=== PATIENT | female | born 1995 | race African-American/Black ===

== ENCOUNTER 2018-03-09 13:55 | Emergency (ER) | payer MEDICAID ==
[~2018-03-09] VITALS: Ht 162.6 cm; Wt 60.0 kg
[2018-03-09] MEDS ORDERED: BUTORPHANOL TARTRATE 2 MG/ML VIAL IM PRN (14:30)
[2018-03-09] MEDS ORDERED: FAMOTIDINE 20MG/2ML VIAL IV ONE (14:30)
[2018-03-09] MEDS ORDERED: SODIUM CHLORIDE 0.9% 1,000 ML IV ONE (14:30)
[2018-03-09] MEDS ORDERED: ONDANSETRON HCL 4MG/2ML INJ IV STA (14:30)
[2018-03-09 14:50] LABS: CLARITY URINE CLOUDY (CLEAR); COLOR URINE ORANGE (YELLOW); KETONES URINE 4+ (NEGATIVE); LEUKOCYTE ESTERASE URINE TRACE (NEGATIVE); NITRITE URINE NEGATIVE (NEGATIVE); OCCULT BLOOD URINE NEGATIVE (NEGATIVE); PROTEIN URINE 2+ (NEGATIVE); SPECIFIC GRAVITY URINE 1.037 (1.005-1.030)
[2018-03-09 15:16] LABS: BASOPHILS % 0.2 % (0.0-2.0); EOSINOPHILS % 0.1 % (0.0-5.0); HEMATOCRIT. 43.9 % (36.0-48.0); HEMOGLOBIN. 14.7 g/dL (12.0-16.0); LYMPHOCYTES % 11.5 % (20.0-50.0); MEAN CORPUSCULAR HEMOGLOBIN 27.4 pg (28.0-32.0); MEAN CORPUSCULAR VOLUME 81.5 fL (81.0-99.0); MEAN PLATELET VOLUME 9.5 fl (7.4-10.4); MONOCYTES % 10.6 % (2.0-8.0); NEUTROPHILS % 77.6 % (40.0-76.0); PLATELET 298 x1000/uL (130-400); RED BLOOD CELL COUNT 5.38 mill/uL (4.2-5.4); RED CELL DISTRIBUTION WIDTH 13.5 % (11.6-14.6)
[2018-03-09 15:20] LABS: CHLORIDE 94 mEq/L (98-107); INR 1.2
[2018-03-09] MEDS ORDERED: POTASSIUM CHLORIDE 20MEQ TABLET SR PO ONE (15:30)
[2018-03-09] MEDS ORDERED: ACETAMINOPHEN 325MG TABLET PO ONE (16:15)
[2018-03-09 17:15] LABS: B-HCG QUANTITATIVE > 250000 mIU/mL (<3)
[2018-03-09 18:46] VITALS: BP 107/64
== END 2018-03-09 18:47 | disposition home or self-care (01) ==
LOC: ER 14:10
DX: O21.1 Hyperemesis gravidarum with metabolic disturbance (principal); O23.41 Unspecified infection of urinary tract in pregnancy, first trimester; R79.89 Other specified abnormal findings of blood chemistry; O26.891 Other specified pregnancy related conditions, first trimester; Z3A.09 9 weeks gestation of pregnancy
CPT/HCPCS: 36415; 76801; 80053; 81003; 83690; 83735; 84702; 85025; 85610; 86850; 86900; 86901; 96361; 96374; 96375; 99285; J2405; J3490; J7030

== ENCOUNTER 2018-03-10 10:44 | Inpatient (IN) | payer MEDICAID, OTHER ==
[~2018-03-10] VITALS: Ht 160 cm; Wt 60.3 kg
[2018-03-10] MEDS ORDERED: SODIUM CHLORIDE 0.9% 1,000 ML IV ONE (16:41)
[2018-03-10] MEDS ORDERED: FAMOTIDINE 20MG/2ML VIAL IV STA (16:41)
[2018-03-10] MEDS ORDERED: ONDANSETRON HCL 4MG/2ML INJ IV STA (16:41)
[2018-03-10 17:12] LABS: BASOPHILS % 0.2 % (0.0-2.0); HEMATOCRIT. 41.1 % (36.0-48.0); HEMOGLOBIN. 13.9 g/dL (12.0-16.0); LYMPHOCYTES % 9.2 % (20.0-50.0); MEAN CORPUSCULAR HEMOGLOBIN 27.5 pg (28.0-32.0); MEAN CORPUSCULAR VOLUME 81.3 fL (81.0-99.0); MEAN PLATELET VOLUME 9.7 fl (7.4-10.4); NEUTROPHILS % 83.6 % (40.0-76.0); PLATELET 281 x1000/uL (130-400); RED BLOOD CELL COUNT 5.05 mill/uL (4.2-5.4); RED CELL DISTRIBUTION WIDTH 13.5 % (11.6-14.6)
[2018-03-10 17:17] LABS: CHLORIDE 97 mEq/L (98-107)
[2018-03-10 17:18] LABS: INR 1.2
[2018-03-10] MEDS ORDERED: KCL 20MEQ/100ML PREMIX 100 ML IV ONE (17:30)
[2018-03-10] MEDS ORDERED: ACETAMINOPHEN 325MG TABLET PO ONE (17:30)
[2018-03-10 17:53] LABS: B-HCG QUANTITATIVE > 200000 mIU/mL (<3)
[2018-03-10] MEDS ORDERED: ONDANSETRON HCL 4MG/2ML INJ IV ONE (19:00)
[2018-03-10] MEDS ORDERED: CEFTRIAXONE 1 G PREMIX 50 ML IV ONE (19:00)
[2018-03-10 19:23] LABS: CLARITY URINE CLEAR (CLEAR); COLOR URINE DARK YELLOW (YELLOW); KETONES URINE 4+ (NEGATIVE); LEUKOCYTE ESTERASE URINE NEGATIVE (NEGATIVE); NITRITE URINE NEGATIVE (NEGATIVE); OCCULT BLOOD URINE NEGATIVE (NEGATIVE); PROTEIN URINE 1+ (NEGATIVE); SPECIFIC GRAVITY URINE 1.027 (1.005-1.030)
[2018-03-10 19:37] LABS: *AMPHETAMINES SCREEN URINE NEGATIVE (NEGATIVE); *BARBITURATES SCREEN URINE NEGATIVE (NEGATIVE); *BENZODIAZEPINES SCREEN URINE NEGATIVE (NEGATIVE); *COCAINE SCREEN URINE NEGATIVE (NEGATIVE)
[2018-03-10 19:41] LABS: METHADONE URINE SCREEN NEGATIVE (NEGATIVE); OPIATES URINE SCREEN NEGATIVE (NEGATIVE); PHENCYCLIDINE URINE SCREEN NEGATIVE (NEGATIVE)
[2018-03-10 19:45] LABS: CANNABINOID URINE SCREEN PRESUMTIVE POSITIVE (NEGATIVE)
[2018-03-10 23:30] VITALS: BP 101/61
[2018-03-10] MEDS ORDERED: ONDANSETRON HCL 4MG/2ML INJ IV PRN (23:30)
[2018-03-10] MEDS ORDERED: ACETAMINOPHEN 650MG SUPP PR PRN (23:30)
[2018-03-11] MEDS ORDERED: POTASSIUM CHLORIDE INJ 40 MEQ in DEXT 5% WATER 500 ML IV NR (01:00)
[2018-03-11] MEDS: MVI, ADULT NO.1 10 ML in DEXT 5%/0.9% NACL 1,000 ML IV SCH ×2 (02:11)
[2018-03-11 04:00] VITALS: BP 94/59
[2018-03-11] MEDS ORDERED: ACET-2853 PO (05:53)
[2018-03-11] MEDS ORDERED: CEPH500C2 MT (05:53)
[2018-03-11] MEDS ORDERED: DOXY1TAB3 MT (05:53)
[2018-03-11 07:31] LABS: BASOPHILS % 0.5 % (0.0-2.0); EOSINOPHILS % 0.7 % (0.0-5.0); MEAN CORPUSCULAR HEMOGLOBIN 27.5 pg (28.0-32.0); MEAN CORPUSCULAR VOLUME 82.6 fL (81.0-99.0); MEAN PLATELET VOLUME 9.8 fl (7.4-10.4); MONOCYTES % 11.8 % (2.0-8.0); PLATELET 211 x1000/uL (130-400); RED BLOOD CELL COUNT 3.73 mill/uL (4.2-5.4); RED CELL DISTRIBUTION WIDTH 13.3 % (11.6-14.6)
[2018-03-11 07:38] LABS: CHLORIDE 106 mEq/L (98-107)
[2018-03-11 07:46] LABS: HEMATOCRIT. 30.8 % (36.0-48.0); HEMOGLOBIN. 10.3 g/dL (12.0-16.0)
[2018-03-11 08:00] VITALS: BP 94/62
[2018-03-11] MEDS ORDERED: ONDANSETRON HCL 4MG/2ML INJ IV SCH (10:00)
[2018-03-11] MEDS: ONDANSETRON HCL 4MG/2ML INJ IV SCH ×2 (11:04→17:39)
[2018-03-11 12:00] VITALS: BP 93/62
[2018-03-11] MEDS: PROMETHAZINE HCL 25MG TABLET PO SCH ×2 (12:21→17:38)
[2018-03-11] MEDS: FAMOTIDINE 20MG/2ML VIAL IV SCH ×2 (15:10→20:11)
[2018-03-11 16:00] VITALS: BP 102/72
[2018-03-11 20:00] VITALS: BP 134/87
[2018-03-11] MEDS ORDERED: FAMOTIDINE 20MG/2ML VIAL IV SCH (21:00)
[2018-03-12] VITALS: BP 99/57
[2018-03-12] MEDS: ONDANSETRON HCL 4MG/2ML INJ IV SCH ×4 (00:07→18:07)
[2018-03-12] MEDS: PROMETHAZINE HCL 25MG TABLET PO SCH (00:07)
[2018-03-12] MEDS: MVI, ADULT NO.1 10 ML in DEXT 5%/0.9% NACL 1,000 ML IV SCH ×2 (01:35)
[2018-03-12 04:00] VITALS: BP 104/56
[2018-03-12 08:00] VITALS: BP 99/66
[2018-03-12 08:13] LABS: CHLORIDE 105 mEq/L (98-107)
[2018-03-12] MEDS ORDERED: DEXT 5% WATER + KCL 40MEQ/L 500 ML IV ONE (08:45)
[2018-03-12] MEDS ORDERED: PYRIDOXINE 100 MG/ML 1ML IM SCH (09:00)
[2018-03-12] MEDS: FAMOTIDINE 20MG/2ML VIAL IV SCH ×2 (09:21→21:46)
[2018-03-12] MEDS ORDERED: POTASSIUM CHLORIDE INJ 40 MEQ in DEXT 5% WATER 500 ML IV NR (10:00)
[2018-03-12 12:00] VITALS: BP 103/68
[2018-03-12 16:00] VITALS: BP 98/64
[2018-03-12] MEDS ORDERED: SODIUM CHLORIDE 0.9% 500 ML IV ONE (19:45)
[2018-03-12 20:00] VITALS: BP 97/71
[2018-03-13] VITALS: BP 99/68
[2018-03-13] MEDS: MVI, ADULT NO.1 10 ML in DEXT 5%/0.9% NACL 1,000 ML IV SCH ×2 (00:22)
[2018-03-13] MEDS: ONDANSETRON HCL 4MG/2ML INJ IV SCH ×4 (00:22→18:03)
[2018-03-13 04:00] VITALS: BP 95/56
[2018-03-13] MEDS ORDERED: PYRIDOXINE 100 MG/ML 1ML IM NR (06:00)
[2018-03-13 08:00] VITALS: BP 118/61
[2018-03-13] MEDS: FAMOTIDINE 20MG/2ML VIAL IV SCH (10:08)
[2018-03-13 10:12] LABS: CHLORIDE 109 mEq/L (98-107)
[2018-03-13 12:00] VITALS: BP 106/71
[2018-03-13] MEDS ORDERED: POTASSIUM CHLORIDE INJ 40 MEQ in DEXT 5% WATER 500 ML IV SCH (13:00)
[2018-03-13 15:55] VITALS: BP 108/70
[2018-03-13 16:00] VITALS: BP 108/70
== END 2018-03-13 19:35 | disposition home or self-care (01) | DRG 566 ==
LOC: ER 10:44 → 8WST 21:07 → EDBEDREQ 21:11 → EDBEDREQTM 21:11 → ENRESERV 21:21 → EDBEDREQ 21:31 → EDBEDREQTM 21:31
PROVIDERS: ADMIT Specialist; ATTEND Specialist
DX: O21.1 Hyperemesis gravidarum with metabolic disturbance (principal); O99.321 Drug use complicating pregnancy, first trimester; O99.011 Anemia complicating pregnancy, first trimester; O99.281 Endocrine, nutritional and metabolic diseases complicating pregnancy, first trimester; E86.0 Dehydration; D64.9 Anemia, unspecified; F12.10 Cannabis abuse, uncomplicated; Z3A.09 9 weeks gestation of pregnancy; Z87.440 Personal history of urinary (tract) infections
CPT/HCPCS: 36415; 76801; 80048; 80051; 80305; 83735; 84439; 84443; 84520; 84702; 93005; 93970; 96361; 96374; 96375; 99285; J0696; J2405; J3415; J3480; J3490; J7030; J7042; J7060; Q0169

== ENCOUNTER 2018-03-23 11:09 | Emergency (ER) | payer MEDICAID ==
[~2018-03-23] VITALS: Ht 157.5 cm; Wt 56.0 kg
[~2018-03-23 11:09] MED LIST: ACET-2853 PO; CEPH500C2 MT; DOXY1TAB3 MT
[2018-03-23] MEDS ORDERED: SODIUM CHLORIDE 0.9% 1,000 ML IV ONE (11:41)
[2018-03-23] MEDS ORDERED: ONDANSETRON HCL 4MG/2ML INJ IV ONE (11:45)
[2018-03-23 12:29] LABS: BASOPHILS % 0.4 % (0.0-2.0); EOSINOPHILS % 0.2 % (0.0-5.0); HEMOGLOBIN. 14.5 g/dL (12.0-16.0); LYMPHOCYTES % 11.3 % (20.0-50.0); MEAN CORPUSCULAR HEMOGLOBIN 27.7 pg (28.0-32.0); MEAN CORPUSCULAR VOLUME 82.3 fL (81.0-99.0); MEAN PLATELET VOLUME 9.7 fl (7.4-10.4); MONOCYTES % 10.7 % (2.0-8.0); NEUTROPHILS % 77.4 % (40.0-76.0); PLATELET 371 x1000/uL (130-400); RED BLOOD CELL COUNT 5.23 mill/uL (4.2-5.4); RED CELL DISTRIBUTION WIDTH 13.4 % (11.6-14.6)
[2018-03-23 12:32] LABS: CHLORIDE 96 mEq/L (98-107)
[2018-03-23 12:44] LABS: T4 FREE 2.35 ng/dL (0.76-1.46)
[2018-03-23 14:18] LABS: CLARITY URINE CLEAR (CLEAR); COLOR URINE DARK YELLOW (YELLOW); KETONES URINE 4+ (NEGATIVE); LEUKOCYTE ESTERASE URINE NEGATIVE (NEGATIVE); NITRITE URINE NEGATIVE (NEGATIVE); OCCULT BLOOD URINE NEGATIVE (NEGATIVE); PH URINE 5.5 (4.5-8.0); PROTEIN URINE 1+ (NEGATIVE); SPECIFIC GRAVITY URINE 1.035 (1.005-1.030)
[2018-03-23] MEDS ORDERED: ONDANSETRON 4MG/5ML UDC PO ONE (17:00)
[2018-03-23 17:01] VITALS: BP 97/61
== END 2018-03-23 17:04 | disposition home or self-care (01) ==
LOC: ER 11:09
DX: O26.891 Other specified pregnancy related conditions, first trimester (principal); O21.0 Mild hyperemesis gravidarum; Z3A.11 11 weeks gestation of pregnancy
CPT/HCPCS: 36415; 76705; 76801; 76817; 80053; 81003; 81025; 84439; 84443; 84702; 85025; 96361; 96374; 99285; J2405; J7030; Q0162

== ENCOUNTER 2018-08-28 21:50 | Observation (INO) | payer MEDICAID ==
[~2018-08-28] VITALS: Ht 157.5 cm; Wt 59.9 kg
[2018-08-28] MEDS ORDERED: [UNRECOGNIZED DRUG - REMARK] IV SCH ×2 (23:00)
[2018-08-28] MEDS ORDERED: MVI, ADULT NO.1 10 ML in DEXT 5%/0.9% NACL 1,000 ML IV ONE ×2 (23:15)
[2018-08-29 00:08] LABS: CLARITY URINE CLEAR (CLEAR); COLOR URINE YELLOW (YELLOW); KETONES URINE TRACE (NEGATIVE); LEUKOCYTE ESTERASE URINE TRACE (NEGATIVE); NITRITE URINE NEGATIVE (NEGATIVE); OCCULT BLOOD URINE NEGATIVE (NEGATIVE); PH URINE 7.5 (4.5-8.0); PROTEIN URINE NEGATIVE (NEGATIVE); SPECIFIC GRAVITY URINE 1.021 (1.005-1.030)
[2018-08-29 00:24] LABS: *AMPHETAMINES SCREEN URINE NEGATIVE (NEGATIVE); *BARBITURATES SCREEN URINE NEGATIVE (NEGATIVE); CANNABINOID URINE SCREEN NEGATIVE (NEGATIVE); METHADONE URINE SCREEN NEGATIVE (NEGATIVE); OPIATES URINE SCREEN NEGATIVE (NEGATIVE); PHENCYCLIDINE URINE SCREEN NEGATIVE (NEGATIVE)
[2018-08-29 00:25] LABS: *BENZODIAZEPINES SCREEN URINE NEGATIVE (NEGATIVE); *COCAINE SCREEN URINE NEGATIVE (NEGATIVE)
[2018-08-29 00:52] LABS: BASOPHILS % 0.4 % (0.0-2.0); EOSINOPHILS % 0.6 % (0.0-5.0); HEMATOCRIT. 37.2 % (36.0-48.0); HEMOGLOBIN. 12.2 g/dL (12.0-16.0); LYMPHOCYTES % 25.5 % (20.0-50.0); MEAN CORPUSCULAR HEMOGLOBIN 27.2 pg (28.0-32.0); MEAN PLATELET VOLUME 10.8 fl (7.4-10.4); MONOCYTES % 13.1 % (2.0-8.0); NEUTROPHILS % 60.4 % (40.0-76.0); PLATELET 213 x1000/uL (130-400); RED BLOOD CELL COUNT 4.48 mill/uL (4.2-5.4)
[2018-08-29 00:56] LABS: CHLORIDE 105 mEq/L (98-107)
[2018-08-29 00:59] LABS: PARTIAL THROMBOPLASTIN TIME 30.6 sec (23.4-31.0); PROTHROMBIN TIME 10.4 sec (9.6-11.0)
== END 2018-08-29 03:00 | disposition home or self-care (01) ==
LOC: 8 EST LDRP 21:50
PROVIDERS: ADMIT Specialist; ATTEND Specialist
DX: O26.893 Other specified pregnancy related conditions, third trimester (principal); R51 Headache; O21.2 Late vomiting of pregnancy; R42 Dizziness and giddiness; H53.8 Other visual disturbances; Z3A.35 35 weeks gestation of pregnancy
CPT/HCPCS: 36415; 80053; 80305; 81003; 84550; 85025; 85384; 85610; 85730; 96365; 96366; 99281; G0378; J3490; J7042; 96360; 96361

== ENCOUNTER 2020-02-12 23:27 | Emergency (ER) | payer MEDICAID ==
[~2020-02-12] VITALS: Ht 157.5 cm; Wt 73.0 kg
[2020-02-13] MEDS ORDERED: SODIUM CHLORIDE 0.9% 1,000 ML IV ONE (02:11)
[2020-02-13] MEDS ORDERED: ONDANSETRON HCL 4MG/2ML INJ IV ONE (02:15)
[2020-02-13 02:34] LABS: BASOPHILS % 0.6 % (0.0-2.0); EOSINOPHILS % 0.6 % (0.0-5.0); HEMATOCRIT. 40.5 % (36.0-48.0); HEMOGLOBIN. 13.7 g/dL (12.0-16.0); MEAN CORPUSCULAR HEMOGLOBIN 27.8 pg (28.0-32.0); MEAN CORPUSCULAR VOLUME 82.6 fL (81.0-99.0); MEAN PLATELET VOLUME 10.1 fl (7.4-10.4); MONOCYTES % 8.7 % (2.0-8.0); NEUTROPHILS % 74.1 % (40.0-76.0); PLATELET 306 x1000/uL (130-400); RED BLOOD CELL COUNT 4.91 mill/uL (4.2-5.4); RED CELL DISTRIBUTION WIDTH 14.4 % (11.6-14.6)
[2020-02-13 02:35] LABS: CHLORIDE 103 mEq/L (98-107)
[2020-02-13 03:09] LABS: B-HCG QUANTITATIVE 13784 mIU/mL (<3)
[2020-02-13 04:27] LABS: CLARITY URINE CLOUDY (CLEAR); COLOR URINE YELLOW (YELLOW); KETONES URINE 4+ (NEGATIVE); LEUKOCYTE ESTERASE URINE NEGATIVE (NEGATIVE); NITRITE URINE NEGATIVE (NEGATIVE); OCCULT BLOOD URINE NEGATIVE (NEGATIVE); PROTEIN URINE TRACE (NEGATIVE); SPECIFIC GRAVITY URINE 1.024 (1.005-1.030)
[2020-02-13] MEDS ORDERED: POTASSIUM CHLORIDE 20MEQ TABLET SR PO SCH (04:30)
[2020-02-13 05:30] VITALS: BP 115/62
== END 2020-02-13 06:14 | disposition home or self-care (01) ==
LOC: ER 23:27
DX: O21.0 Mild hyperemesis gravidarum (principal); O02.9 Abnormal product of conception, unspecified; O08.5 Metabolic disorders following an ectopic and molar pregnancy
CPT/HCPCS: 36415; 80048; 81003; 84702; 85025; 93005; 96361; 96374; 99284; J2405; J7030

== ENCOUNTER 2021-01-07 15:31 | Emergency (ER) | payer MEDICAID ==
[~2021-01-07] VITALS: Ht 157.5 cm; Wt 74.0 kg
[2021-01-07 17:54] VITALS: BP 121/73
[2021-01-07] MEDS ORDERED: ACETAMINOPHEN 325MG TABLET PO ONE (20:45)
[2021-01-07] MEDS ORDERED: SODIUM CHLORIDE 0.9% 1,000 ML IV ONE (20:45)
[2021-01-07] MEDS ORDERED: ONDANSETRON HCL 4MG/2ML INJ IV ONE (20:45)
[2021-01-07 21:10] LABS: BASOPHILS % 0.5 % (0.0-2.0); EOSINOPHILS % 1.1 % (0.0-5.0); HEMATOCRIT. 42.6 % (36.0-48.0); HEMOGLOBIN. 14.1 g/dL (12.0-16.0); LYMPHOCYTES % 21.4 % (20.0-50.0); MEAN CORPUSCULAR HEMOGLOBIN 27.4 pg (28.0-32.0); MEAN CORPUSCULAR VOLUME 82.7 fL (81.0-99.0); PLATELET 326 x1000/uL (130-400); RED BLOOD CELL COUNT 5.15 mill/uL (4.2-5.4); RED CELL DISTRIBUTION WIDTH 14.6 % (11.6-14.6)
[2021-01-07] MEDS ORDERED: ACETAMINOPHEN 325MG TABLET PO NR (21:15)
[2021-01-07 21:18] LABS: CHLORIDE 102 mEq/L (98-107)
[2021-01-07] MEDS ORDERED: POTASSIUM CHLORIDE 20MEQ TABLET SR PO ONE (21:45)
[2021-01-07 22:34] LABS: B-HCG QUANTITATIVE 9365 mIU/mL (<3)
== END 2021-01-07 23:12 | disposition left against medical advice (07) ==
LOC: ER 15:31
DX: O46.91 Antepartum hemorrhage, unspecified, first trimester (principal); Z3A.01 Less than 8 weeks gestation of pregnancy
CPT/HCPCS: 36415; 76801; 80053; 81025; 84702; 85025; 86850; 86900; 86901; 96361; 96374; 99284; J2405; J7030

== ENCOUNTER 2021-01-10 18:27 | Emergency (ER) | payer MEDICAID ==
[~2021-01-10] VITALS: Ht 162.6 cm; Wt 66.0 kg
[2021-01-10] MEDS ORDERED: ONDANSETRON HCL 4MG/2ML INJ IV STA (19:44)
[2021-01-10] MEDS ORDERED: MAGNESIUM/ALUMINUM HYDROXIDE/SIMETHICONE 30ML UDC PO STA (19:44)
[2021-01-10] MEDS ORDERED: DICYCLOMINE 10 MG/5 ML ORAL SYR PO STA (19:44)
[2021-01-10] MEDS ORDERED: SODIUM CHLORIDE 0.9% 1,000 ML IV ONE (19:45)
[2021-01-10 20:23] LABS: BASOPHILS % 0.4 % (0.0-2.0); EOSINOPHILS % 0.2 % (0.0-5.0); HEMATOCRIT. 42.1 % (36.0-48.0); HEMOGLOBIN. 14.4 g/dL (12.0-16.0); LYMPHOCYTES % 11.8 % (20.0-50.0); MEAN CORPUSCULAR HEMOGLOBIN 27.7 pg (28.0-32.0); MEAN CORPUSCULAR VOLUME 81.2 fL (81.0-99.0); MEAN PLATELET VOLUME 10.2 fl (7.4-10.4); MONOCYTES % 9.6 % (2.0-8.0); PLATELET 322 x1000/uL (130-400); RED BLOOD CELL COUNT 5.18 mill/uL (4.2-5.4); RED CELL DISTRIBUTION WIDTH 14.9 % (11.6-14.6)
[2021-01-10 20:31] LABS: CHLORIDE 104 mEq/L (98-107)
[2021-01-10 20:43] LABS: B-HCG QUANTITATIVE 681 mIU/mL (<3)
[2021-01-10] MEDS ORDERED: POTASSIUM CHLORIDE 20MEQ TABLET SR PO ONE (21:15)
[2021-01-10 22:20] LABS: CLARITY URINE TURBID (CLEAR); COLOR URINE YELLOW (YELLOW); KETONES URINE 4+ (NEGATIVE); LEUKOCYTE ESTERASE URINE TRACE (NEGATIVE); NITRITE URINE NEGATIVE (NEGATIVE); OCCULT BLOOD URINE 3+ (NEGATIVE); PROTEIN URINE 2+ (NEGATIVE); SPECIFIC GRAVITY URINE 1.027 (1.005-1.030)
[2021-01-10] MEDS ORDERED: OMEP40CA12 MT (22:52)
[2021-01-10] MEDS ORDERED: FAMOTIDINE 20MG/2ML VIAL IV ONE (23:00)
[2021-01-11 00:58] VITALS: BP 105/74
== END 2021-01-11 00:50 | disposition home or self-care (01) ==
LOC: ER 18:56
DX: R10.9 Unspecified abdominal pain (principal); E87.6 Hypokalemia
CPT/HCPCS: 36415; 80053; 81003; 83690; 84702; 85025; 96374; 96375; 99284; J2405; J3490; J7030

== ENCOUNTER 2023-03-05 19:51 | Observation (INO) | payer MEDICAID ==
[~2023-03-05] VITALS: Ht 157.5 cm; Wt 68.0 kg
[~2023-03-05 19:51] MED LIST changes: -ACET-2853 PO; -CEPH500C2 MT; -DOXY1TAB3 MT; +OMEP40CA20 MT
[2023-03-05] MEDS ORDERED: ZOFRAN (21:31)
[2023-03-05] MEDS ORDERED: PREN1TAB23 PO (21:31)
== END 2023-03-05 22:00 | disposition home or self-care (01) ==
LOC: 8 EST LDRP 19:51
PROVIDERS: ADMIT Obstetrics & Gynecology; ATTEND Obstetrics & Gynecology
DX: O34.33 Maternal care for cervical incompetence, third trimester (principal); Z3A.30 30 weeks gestation of pregnancy
CPT/HCPCS: 76818; 76805; G0378 ×2; G0379